=== PATIENT | male | born 1950 | race Caucasian/White ===

== ENCOUNTER 2018-05-04 09:56 | Emergency (ER) | payer BC, MEDICARE ==
--- NOTE | 2018-05-04 10:26 | ED ---
Neurological HPI - HPI Summary HPI Summary: A 68 y/o M arriving by car presents to ED with c/o lightheadedness onset approx 0915. Sx have since resolved, and the episode lasted approx 15 minutes. 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 He states feeling very scared when his vision changed. PMHx: diabetic, oral sugar tablets. He did not eat breakfast this AM. He used his last test strip yesterday, and [facility], so is [facility]. He is feeling better at bedside. Denies: CP, numbness, LOC, upper and lower extremity weakness. Per , pt did not have impaired speech when he called his [employer]. Pt has worked a extra hours the past two days. Non-smoker, weekly ETOH. - History of Current Complaint Chief Complaint: EDNeurologicalDeficit Stated Complaint: DIZZZY LOSS OF VISION Hx Obtained From: Patient, Family/Supervisor [employer] - Onset/Duration: Sudden Onset, Started hours ago, Resolved Timing: Intermittent Episodes Lasting: - 15 mins Onset Severity: Severe Current Severity: None Pain Intensity: 0 Pain Scale Used: 0-10 Numeric Character: Lightheaded Alleviating: Spontanious Resolution Associated Signs and Symptoms: Positive: Visual Changes - blurry symptoms, Headache. Negative: Weakness, Loss of Consciousness, Impaired Speech, Chest Pain - Allergy/Home Medications Allergies/Adverse Reactions: Allergies Allergy/AdvReac Type Severity Reaction Status Date / Time codeine Allergy Intermediate GI Upset Verified 05/04/18 10:04 Home Medications: Home Medications Amlodipine Besylate [Norvasc 10 mg tab] 10 mg PO DAILY 05/04/18 [History Confirmed 05/04/18] Aspirin [Robert Chewable Aspirin] 81 mg PO DAILY PRN 05/04/18 [History Confirmed 05/04/18] Atenolol/Chlorthalidone [Atenolol/Chlorthalidone 50-25 mg-] 1 tab PO DAILY 05/04 [History Confirmed 05/04/18] Atorvastatin* [Lipitor 80 MG*] 80 mg PO BEDTIME 05/04/18 [History Confirmed ] Levothyroxine Sodium 200 mcg PO QAM 05/04/18 [History Confirmed 05/04/18] Lisinopril 40 mg PO DAILY 05/04/18 [History Confirmed 05/04/18] Metformin HCl [Metformin HCl ER] 1,000 mg PO BID 05/04/18 [History Confirmed ] Naproxen Sodium [Aleve] 1 - 2 cap PO Q8H PRN 05/04/18 [History Confirmed ] glipiZIDE [Glipizide] 5 mg PO BID 05/04/18 [History Confirmed 05/04/18] PMH/Surg Hx/FS Hx/Imm Hx Previously Healthy: No Endocrine/Hematology History: Reports: Hx Diabetes Cardiovascular History: Reports: Hx Hypertension, Other Cardiovascular Problems/ Disorders - murmur Infectious Disease History: No Infectious Disease History: Denies: Traveled Outside the [place] in Last 30 Days - Family History Known Family History: Positive: Cardiac Disease - maternal and paternal, Diabetes - paternal - Social History Occupation: Employed Full-time Lives: With Family Alcohol Use: Weekly Hx Tobacco Use: No Review of Systems Constitutional: Negative Positive: Blurred Vision - severe ENT: Negative Negative: Chest Pain Respiratory: Negative Negative: Abdominal Pain Genitourinary: Negative Positive: Other - pos: upper and lower extremity tremors Negative: Rash Neurological: Other - pos: lightheadedness Positive: Headache. Negative: Weakness, Syncope Negative: Depressed All Other Systems Reviewed And Are Negative: No Physical Exam - Summary Physical Exam Summary: Appearance: Alert, conversive, nontoxic appearing Skin: Warm, dry, no mottling, no rashes, no contusions HEENT: EOMI, PERRL, moist mucous membranes Neck: No masses on the neck, supple Respiratory: Clear to auscultation, breath sounds present, no rales, no rhonchi , no wheezes Cardiovascular: RRR, pulses are symmetrical in both lower and upper extremities Abdomen: Soft, non-tender Bowel Sounds: Present Musculoskeletal: No CVA tenderness, no obvious deformity, moving all extremities in a grossly normal manner Neurological: A&Ox3, CN II-XII Intact, moving all extremities symmetrically Psychiatric: Normal affect and mood Triage Information Reviewed: Yes Vital Signs On Initial Exam: Initial Vitals Temp Pulse Resp BP Pulse Ox 98.3 F 58 16 169/87 97 05/04/18 10:00 05/04/18 10:00 05/04/18 10:00 05/04/18 10:00 05/04/18 10:00 Vital Signs Reviewed: Yes - Yusuf Coma Scale Best Eye Response: 4 - Spontaneous Best Motor Response: 6 - Obeys Commands Best Verbal Response: 5 - Oriented Coma Scale Total: 15 Diagnostics - Vital Signs Vital Signs Temp Pulse Resp BP Pulse Ox 05/04/18 10:00 98.3 F 58 16 169/87 97 - Laboratory Result Diagrams: 05/04/18 10:45 05/04/18 10:45 Lab Statement: Any lab studies that have been ordered have been reviewed, and results considered in the medical decision making process. - Radiology CXR Xray Interpretation: No Acute Changes - IMPRESSION: No active cardiopulmonary dz. ED provider has reviewed this report. Radiology Interpretation Completed By: Radiologist - CT BRAIN CT CT Interpretation: No Acute Changes - IMPRESSION: No acute intracranial pathology. ED provider has reviewed this report. CT Interpretation Completed By: Radiologist HEAD CTA CT Interpretation: Positive (See Comments) - IMPRESSION: 1. NO INTERNAL CAROTID ARTERY STENOSIS BY NASCET CRITERIA. 2. 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 3. OTHERWISE, NO ANEURYSM, VASCULAR MALFORMATION, OCCLUSION, OR STENOSIS OF THE VISUALIZED INTRACRANIAL CIRCULATION. ED provider has reviewed this report. CT Interpretation Completed By: Radiologist - EKG 1051 Cardiac Rate: NL - 52bpm EKG Rhythm: Sinus Bradycardia ST Segment: Non-Specific - in inferior and lateral leads EKG Interpretation: nml QRS, QTC Re-Evaluation - Re-Evaluation 1 Re-Evaluation Time: 12:56 Change: Improved Comment: Updating pt on imaging results and neuro consult and plans for D/C. Course/Dx - Course Course Of Treatment: A 68 y/o M with DM presents with lightheadedness, severe bilat blurry vision, [place], upper and lower extremity tremors. Pt denies extremity weakness, CP, SOB, LOC, motor weakness. Consult with Dr. Crenshaw, neuro, who will see pt in office. - Diagnoses Provider Diagnoses: Near syncope, Aneurysm - Physician Notifications Discussed Care Of Patient With: Alistair Crenshaw - neuro Time Discussed With Above Provider: 12:50 Instructed by Provider To: Have Pt Call For Appt. Discharge - Sign-Out/Discharge Documenting (check all that apply): Patient Departure - Discharge Plan Condition: Stable Disposition: HOME Patient Education Materials: Near Syncope (ED), Nonruptured Cerebral Aneurysm ( DC) Referrals: Ebony Shafer [Primary Care Provider] - Alistair Cresnhaw MD [Medical Doctor] - Additional Instructions: Please follow up with your primary care physician. I have given you a referral for a neurologist, Dr. Crenshaw. Please call his office for a non-emergent follow up visit for your small aneurysm. return if worse or any new symptoms. Take all medications as previously instructed. drink plenty of water. eat healthy and get an appropriate amount of sleep. - Billing Disposition and Condition Condition: STABLE Disposition: Home - Attestation Statements Document Initiated by Anhibfelice: Yes Documenting Scribe: Sherly Farias Provider For Whom Mohini is Documenting (Include Credential): Dr. Philomena Whitehead MD Scribe Attestation: I, Sherly Farias, scribed for Dr. Philomena Whitehead MD on 05/04/18 at 1529. Scribe Documentation Reviewed: Yes Provider Attestation: The documentation as recorded by the anhibSherly viveros accurately reflects the service I personally performed and the decisions made by me, Dr. Philomena Whitehead MD
[2018-05-04 10:55] LABS: ABS Basophils 0 10^3/ul (0-0.2); ABS Eosinophils 0.1 10^3/ul (0-0.6); ABS Lymphocytes 1.7 10^3/ul (1.0-4.8); ABS Monocytes 0.5 10^3/ul (0-0.8); ABS Neutrophils 4.4 10^3/ul (1.5-7.7); ABS Nucleated RBC 0 10^3/ul; Eosinophil % 2.1 % (0-6); Hematocrit 44 % (42-52); Hemoglobin 15.2 g/dl (14.0-18.0); Lymphocyte % 24.6 % (25-47); Mean Corpuscular HGB Conc 35 g/dl (31-36); Mean Corpuscular Hemoglobin 30 pg (27-31); Mean Corpuscular Volume 86 fL (80-94); Mean Platelet Volume 6.9 um3 (7.4-10.4); Nucleated Red Blood Cells % 0.5; Platelet Count 318 10^3/ul (150-450); Red Blood Count 5.11 10^6/ul (4.00-5.40); Red Cell Distribution Width 14 % (10.5-15); White Blood Count 6.8 10^3/ul (3.5-10.8)
[2018-05-04 11:12] LABS: EGFR Non-African American 79.1 (>60)
--- NOTE | 2018-05-04 11:17 | RAD ---
HISTORY: near syncope COMPARISONS: None TECHNIQUE: Multiple contiguous axial CT scans were obtained of the head without intravenous contrast. FINDINGS: HEMORRHAGE/INFARCT: There is no hemorrhage or acute infarct. MASSES/SHIFT: There is no mass or shift. EXTRA-AXIAL SPACES: There are no extra-axial fluid collections. SULCI AND VENTRICLES: The sulci and ventricles are normal in size and position for the patient's stated age. CEREBRUM: There are no focal parenchymal abnormalities. BRAINSTEM: There are no focal parenchymal abnormalities. CEREBELLUM: There are no focal parenchymal abnormalities. VESSELS: The vessels are grossly normal. PARANASAL SINUSES: The paranasal sinuses are clear. ORBITS: The orbits are unremarkable. BONES AND SOFT TISSUE: No bone or soft tissue abnormalities are noted. OTHER: None IMPRESSION: NO ACUTE INTRACRANIAL PATHOLOGY.
--- NOTE | 2018-05-04 11:18 | RAD ---
HISTORY: near syncope COMPARISONS: None VIEWS: 1: frontal AP view of the chest at 10:49 AM FINDINGS: LINES AND TUBES: None. CARDIOMEDIASTINAL SILHOUETTE: The cardiomediastinal silhouette is normal for portable technique. PLEURA: The costophrenic angles are sharp. No pleural abnormalities are noted. LUNG PARENCHYMA: The lungs are clear. ABDOMEN: The upper abdomen is clear. There is no subphrenic gas. BONES AND SOFT TISSUES: No bone or soft tissue abnormalities are noted. IMPRESSION: NO ACTIVE CARDIOPULMONARY DISEASE.
[2018-05-04] MEDS ORDERED: Iodixanol* (CONTRAST) 320 MG/ML 100 ML SDV IV ONE (11:52)
--- NOTE | 2018-05-04 12:28 | RAD ---
HISTORY: dizziness COMPARISONS: CT dated May 04, 2018 TECHNIQUE: Multiple contiguous axial CT scans were obtained of the head and neck after the administration of nonionic intravenous contrast timed to the systemic arterial phase of contrast enhancement. Coronal and sagittal multiplanar reformations are submitted for review. Multiple 3-D maximum intensity projection reconstructions are also submitted for review. FINDINGS: The study is limited by suboptimal contrast opacification. CTA NECK: AORTIC ARCH: There is a normal three-vessel branching pattern of the aortic arch. There is no ostial or proximal stenosis of the cephalic great vessels. RIGHT VERTEBRAL ARTERY: The right vertebral artery is patent along its course, without stenosis. LEFT VERTEBRAL ARTERY: The left vertebral artery is patent along its course, without stenosis. DOMINANCE: The right vertebral artery is dominant. RIGHT COMMON CAROTID ARTERY: The right common carotid artery is patent. There is submucosal deviation of the right common carotid artery. The right carotid bifurcation occurs at C3-C4 RIGHT INTERNAL CAROTID ARTERY: There is no right internal carotid artery stenosis by NASCET criteria. RIGHT EXTERNAL CAROTID ARTERY: The right external carotid artery is unremarkable. LEFT COMMON CAROTID ARTERY: The left common carotid artery is patent. There is some mucosal deviation of the left common carotid artery. The left carotid bifurcation occurs at C3-C4 LEFT INTERNAL CAROTID ARTERY: There is no left internal carotid artery stenosis by NASCET criteria. LEFT EXTERNAL CAROTID ARTERY: The left external carotid artery is unremarkable. VENOUS CIRCULATION: The venous system is unremarkable. SALIVARY GLANDS: The parotid glands, submandibular glands, sublingual glands are normal. NASAL CAVITY/NASOPHARYNX: The nasal cavity and nasopharynx are normal. ORAL CAVITY/OROPHARYNX: The oral cavity is obscured by streak artifact from dental amalgam. The visualized oral cavity and oropharynx are unremarkable. LARYNGEAL APPARATUS/HYPOPHARYNX: The laryngeal apparatus and hypopharynx are normal. UPPER AIRWAY/UPPER ESOPHAGUS: The visualized upper airway and esophagus are normal. LUNG APICES: The lung apices are clear. There is subcentimeter short axis mediastinal lymph nodes. THYROID GLAND: The thyroid gland is normal. LYMPH NODES: There is no lymphadenopathy by size criteria. BONES AND SOFT TISSUES: No bone or soft tissue abnormalities are noted. CTA HEAD: INTRACRANIAL CIRCULATION: There is a 0.4 x 0.3 x 0.3 cm saccular aneurysm of the left MCA bifurcation. Elsewhere, there is no aneurysm, vascular malformation, occlusion, or stenosis of the visualized intracranial circulation. The anterior communicating artery complex is clear. Bilateral posterior communicating arteries are identified. VENOUS CIRCULATION: The venous system is unremarkable. PERFUSION: There is no obvious parenchymal perfusion deficit. HEMORRHAGE/INFARCT: There is no hemorrhage or acute infarct. MASSES/SHIFT: There is no mass or shift. EXTRA-AXIAL SPACES: There are no extra-axial fluid collections. SULCI AND VENTRICLES: The sulci and ventricles are normal in size and position for the patient's stated age. CEREBRUM: There are no focal parenchymal abnormalities. BRAINSTEM: There are no focal parenchymal abnormalities. CEREBELLUM: There are no focal parenchymal abnormalities. PARANASAL SINUSES: There is a mucous retention cyst versus polypoid mucosal thickening of the left maxillary sinus. ORBITS: The orbits are unremarkable. BONES AND SOFT TISSUE: Mild degenerative changes are noted. OTHER: There is no abnormal enhancement. IMPRESSION: 1. NO INTERNAL CAROTID ARTERY STENOSIS BY NASCET CRITERIA. 2. 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 3. OTHERWISE, NO ANEURYSM, VASCULAR MALFORMATION, OCCLUSION, OR STENOSIS OF THE VISUALIZED INTRACRANIAL CIRCULATION. CPT II Codes: 3100F
[2018-05-04 13:07] VITALS: BP 103/77
== END 2018-05-04 13:06 | disposition home or self-care (01) ==
LOC: ED 09:56
DX: R55 Syncope and collapse (principal); I67.1 Cerebral aneurysm, nonruptured; R00.1 Bradycardia, unspecified; E11.9 Type 2 diabetes mellitus without complications; I10 Essential (primary) hypertension; Z79.84 Long term (current) use of oral hypoglycemic drugs; Z79.899 Other long term (current) drug therapy; Z88.5 Allergy status to narcotic agent
CPT/HCPCS: 36415; 70450; 70496; 70498; 71045; 80053; 83735; 84443; 84484; 85025; 93005; 99283; Q9967